=== PATIENT | male | born 1995 | race Caucasian/White ===

== ENCOUNTER → 2021-02-10 | Outpatient (CLI) | payer BC ==
[2021-02-10 16:35] LABS: BASO # 0.02 (0.02-0.10); EOS # 0.29 (0.04-0.40); EOS % 5.9 % (0.0-4.0); HEMATOCRIT 44.9 % (42.0-52.0); HEMOGLOBIN 15.4 g/dL (13.5-18.0); LYMPH# 1.55 (1.50-4.00); MEAN CELL VOLUME 89 fl (78-100); MEAN CORPUSCULAR HEMOGLOBIN 31 pg (27-31); MEAN CORPUSCULAR HGB CONC 34 g/dL (33-37); NEU # 2.63 (1.40-6.50); PLATELET COUNT 176 K/mm3 (130-400); RED BLOOD COUNT 5.02 M/mm3 (4.20-5.60); RED CELL DISTRIBUTION WIDTH 11.7 % (11.5-14.5); WHITE BLOOD COUNT 4.9 K/mm3 (4.8-10.8)
[2021-02-10 16:44] LABS: ALBUMIN 4.7 g/dL (3.5-5.0); POTASSIUM 3.9 mmol/L (3.5-5.1)
[2021-02-10 16:45] LABS: CALCIUM 9.3 mg/dL (8.3-10.5)
[2021-02-10 16:47] LABS: TOTAL PROTEIN 7.1 g/dL (6.4-8.3)
[2021-02-10 16:48] LABS: TOTAL BILIRUBIN 0.8 mg/dL (0.2-1.2)
[2021-02-10 23:15] LABS: HEPATITIS C ANTIBODY Negative (Negative)
[2021-02-10 23:32] LABS: SYPHILIS AB SCREEN w REFLEX Negative (Negative)
== END ==
LOC: LAB 16:16
PROVIDERS: Family Medicine
DX: Z00.00 Encounter for general adult medical examination without abnormal findings (principal); E78.5 Hyperlipidemia, unspecified; Z83.49 Family history of other endocrine, nutritional and metabolic diseases; Z72.51 High risk heterosexual behavior

== ENCOUNTER → 2022-03-21 | Outpatient (CLI) | payer SELFPAY ==
[2022-03-21 12:51] LABS: ALBUMIN 4.6 g/dL (3.5-5.0)
[2022-03-21 12:52] LABS: CALCIUM 9.5 mg/dL (8.3-10.5)
[2022-03-21 12:53] LABS: TOTAL PROTEIN 7.3 g/dL (6.4-8.3)
[2022-03-21 12:55] LABS: TOTAL BILIRUBIN 0.4 mg/dL (0.2-1.2)
[2022-03-21 13:39] LABS: BASO # 0.03 K/mm3 (0.02-0.10); EOS # 0.39 K/mm3 (0.04-0.40); EOS % 6.9 % (0.0-4.0); HEMATOCRIT 45.8 % (42.0-52.0); HEMOGLOBIN 15.6 g/dL (13.5-18.0); LYMPH# 1.64 K/mm3 (1.50-4.00); MEAN CELL VOLUME 88 fl (78-100); MEAN CORPUSCULAR HEMOGLOBIN 30 pg (27-31); MEAN CORPUSCULAR HGB CONC 34 g/dL (33-37); MEAN PLATELET VOLUME 10.3 fl (7.4-10.4); MONO # 0.41 K/mm3 (0.20-0.80); NEU # 3.18 K/mm3 (1.40-6.50); PLATELET COUNT 176 K/mm3 (130-400); RED BLOOD COUNT 5.21 M/mm3 (4.20-5.60); RED CELL DISTRIBUTION WIDTH 11.9 % (11.5-14.5); WHITE BLOOD COUNT 5.7 K/mm3 (4.8-10.8)
== END ==
LOC: LAB 12:11
PROVIDERS: Family Medicine
DX: Z00.00 Encounter for general adult medical examination without abnormal findings (principal); F32.9 Major depressive disorder, single episode, unspecified; L30.9 Dermatitis, unspecified; F41.1 Generalized anxiety disorder; Z83.49 Family history of other endocrine, nutritional and metabolic diseases

== ENCOUNTER → 2024-07-14 | Outpatient (CLI) | payer OTHER | LOC: RAD 15:34 | DX: M25.562 Pain in left knee (principal) ==